=== PATIENT | female | born 1985 | race Caucasian/White ===

== ENCOUNTER 2017-01-31 13:00 | Emergency (ER) | payer OTHER ==
[~2017-01-31] VITALS: Ht 167.6 cm; Wt 59.5 kg
[~2017-01-31 13:00] MED LIST: APAP/HYDROCODON1 T13 PO; ASPI-COR81 M3 PO; ASPIR 8181 MG PO; AUG500 PO; CIPRO250 MG PO; COLACE100 MG PO; DILAUDID2 MG PO; DOXYCYCLINE100 MG PO; ERYTHROMYCIN250 M2 PO; FER300 PO; FLUCONAZOLE100 MG PO; GLIPIZIDE5 MG PO; GLU10 PO; GLU500 PO; GLU850 PO; LAC PO; LACTULOSE10 GM/152 PO; LASIX20 MG PO; LAXATIVE5 M1 PO; LEVEMIR100 U/M1 SC; METFORMIN HCL500 MG PO; METOCLOPRAMIDE10 MG PO; NATURAL IRON65 MG PO; NICODERM C21 MG/241 TOP; NOR10T PO; NORCO1 TA2 PO; NOVOLOG100 U/ML SC; PROTONIX20 MG PO; PROTONIX40 MG PO; PULMICORT0.5 MG/2 M IH; REG10 PO; SIMVASTATIN10 M1 PO; SIMVASTATIN40 M1 PO; VITC PO; ZOF4 PO
[2017-01-31 14:03] LABS: BASOPHIL % 1.1 % (0-2); PLATELET COUNT 229 x10^3mcL (130-400)
[2017-01-31 14:06] LABS: RED CELL DISTRIBUTION WIDTH 16.7 % (11.5-14.5)
[2017-01-31 14:09] LABS: CALCIUM 8.9 mg/dL (8.5-10.1); CARBON DIOXIDE 35.2 mmol/L (21-32); CHLORIDE SERUM 103 mmol/L (98-107); CREATININE SERUM 1.1 mg/dL (0.6-1.0); GFR1 > 60 mL/min; GLUCOSE SERUM 246 mg/dL (74-106); POTASSIUM SERUM 3.9 mmol/L (3.5-5.1); SODIUM SERUM 141 mmol/L (136-145)
[2017-01-31 14:13] LABS: ALBUMIN 2.2 g/dL (3.4-5.0); ALKALINE PHOSPHATASE 129 U/L (46-116); ALT/SGPT 23 U/L (14-59); AMYLASE 34 U/L (25-115); AST/SGOT 21 U/L (15-37); BILIRUBIN TOTAL 0.4 mg/dL (0.20-1.00); LIPASE 61 IU/L (73-393); TOTAL PROTEIN, SERUM 6.1 g/dL (6.4-8.2)
[2017-01-31 16:44] VITALS: BP 138/99
== END 2017-01-31 16:44 | disposition home or self-care (01) ==
LOC: ED 13:00
PROVIDERS: Emergency Medicine
DX: K31.84 Gastroparesis (principal); I10 Essential (primary) hypertension; E11.621 Type 2 diabetes mellitus with foot ulcer; Z88.2 Allergy status to sulfonamides; Z79.899 Other long term (current) drug therapy
CPT/HCPCS: 83880; J1630; J1885; J2543; J3490; J7030

== ENCOUNTER 2017-09-28 10:46 | Emergency (ER) | payer OTHER ==
[2017-09-28 11:59] LABS: CALCIUM 8.9 mg/dL (8.5-10.1); CARBON DIOXIDE 26.2 mmol/L (21-32); CREATININE SERUM 2.3 mg/dL (0.6-1.0)
[2017-09-28 12:03] LABS: BILIRUBIN TOTAL 0.52 mg/dL (0.20-1.00); TOTAL PROTEIN, SERUM 7.5 g/dL (6.4-8.2)
[2017-09-28] MEDS ORDERED: LASIX40 MG PO (12:05)
[2017-09-28] MEDS ORDERED: ZESTRIL20 MG PO (12:07)
[2017-09-28 12:25] LABS: BASOPHIL % 0.6 % (0-2); PLATELET COUNT 331 x10^3mcL (130-400)
[2017-09-28 12:26] LABS: UA SPECIFIC GRAVITY 1.025 (1.005-1.035); microscopic required? YES; urine erythrocyte 3+ (NEGATIVE)
[2017-09-28 12:31] LABS: AMPHETAMINE QUAL UR POSITIVE (NEG <=1000)
[2017-09-28 12:33] LABS: RED CELL DISTRIBUTION WIDTH 14.8 % (11.5-14.5)
[2017-09-28 15:17] VITALS: BP 163/104
== END 2017-09-28 15:17 | disposition home or self-care (01) ==
LOC: ED 10:46
PROVIDERS: Emergency Medicine
DX: K31.84 Gastroparesis (principal); R10.13 Epigastric pain; R82.71 Bacteriuria; R11.10 Vomiting, unspecified; E11.22 Type 2 diabetes mellitus with diabetic chronic kidney disease; I12.9 Hypertensive chronic kidney disease with stage 1 through stage 4 chronic kidney disease, or unspecified chronic kidney disease; N18.4 Chronic kidney disease, stage 4 (severe); E78.00 Pure hypercholesterolemia, unspecified; Z88.1 Allergy status to other antibiotic agents; Z90.49 Acquired absence of other specified parts of digestive tract
CPT/HCPCS: 82962; 83880; J0696; J1630; J2060; J7030

== ENCOUNTER 2017-11-09 04:15 | Inpatient (IN) | payer OTHER ==
[~2017-11-09] VITALS: Ht 167.6 cm; Wt 99.0 kg
[~2017-11-09 04:15] MED LIST changes: +GLIPIZIDE2.5 M1; +LASIX40 MG PO; +ZESTRIL20 MG PO
[2017-11-09 04:28] VITALS: Ht 167.6 cm; Wt 99.0 kg
[2017-11-09 08:53] LABS: BASOPHIL % 0.1 % (0-2); PLATELET COUNT 250 x10^3mcL (130-400)
[2017-11-09 08:54] LABS: RED CELL DISTRIBUTION WIDTH 15.5 % (11.5-14.5)
[2017-11-09 09:15] LABS: BILIRUBIN TOTAL 0.3 mg/dL (0.20-1.00); CALCIUM 7.9 mg/dL (8.5-10.1); CARBON DIOXIDE 20.9 mmol/L (21-32); CREATININE SERUM 2.6 mg/dL (0.6-1.0); TOTAL PROTEIN, SERUM 6.7 g/dL (6.4-8.2)
[2017-11-09 09:20] LABS: ALBUMIN 1.2 g/dL (3.4-5.0)
[2017-11-09 09:23] LABS: POTASSIUM SERUM 5.9 mmol/L (3.5-5.1)
[2017-11-09] MEDS ORDERED: PROTONIX20 MG PO (09:36)
[2017-11-09] MEDS ORDERED: SIMVASTATIN5 M2 PO (09:38)
[2017-11-09] MEDS ORDERED: GABAPENTIN100 M2 PO (09:39)
[2017-11-09 12:16] VITALS: BP 127/88
[2017-11-09 16:24] LABS: MAGNESIUM 1.6 mg/dL (1.8-2.4); PHOSPHOROUS 3.7 mg/dL (2.5-4.9)
[2017-11-09 16:25] LABS: T3 TOTAL 0.29 ng/mL
[2017-11-09 16:26] LABS: CHOLESTEROL/HDL RATIO 1.7
[2017-11-09 16:27] LABS: FREE T4 0.51 ng/dL (0.76-1.46)
[2017-11-09 16:29] LABS: FREE THYROXINE INDEX 0.8 ug/dL (1.4-4.5); T4(THYROXINE) 2.1 ug/dL (4.7-13.3)
[2017-11-09 18:00] VITALS: BP 159/96
[2017-11-09 19:22] LABS: microscopic required? YES; urine erythrocyte 2+ (NEGATIVE)
[2017-11-09 19:30] LABS: AMPHETAMINE QUAL UR NONE DETECTED (NEG <=1000)
[2017-11-09 21:15] VITALS: BP 151/86
[2017-11-09 21:50] LABS: CARBON DIOXIDE 25.2 mmol/L (21-32); CREATININE SERUM 2.6 mg/dL (0.6-1.0)
[2017-11-09 21:53] LABS: POTASSIUM SERUM 6.2 mmol/L (3.5-5.1)
[2017-11-10 04:39] VITALS: BP 134/64
[2017-11-10 04:44] VITALS: BP 151/80
[2017-11-10 06:36] LABS: BASOPHIL % 0.4 % (0-2); PLATELET COUNT 274 x10^3mcL (130-400)
[2017-11-10 06:46] LABS: RED CELL DISTRIBUTION WIDTH 15.3 % (11.5-14.5)
[2017-11-10 08:06] LABS: CALCIUM 8.2 mg/dL (8.5-10.1); CARBON DIOXIDE 26.1 mmol/L (21-32); CREATININE SERUM 2.5 mg/dL (0.6-1.0); MAGNESIUM 1.4 mg/dL (1.8-2.4); PHOSPHOROUS 5.2 mg/dL (2.5-4.9)
[2017-11-10 08:30] LABS: POTASSIUM SERUM 6.2 mmol/L (3.5-5.1)
[2017-11-10 09:54] VITALS: BP 196/122
[2017-11-10 13:15] VITALS: BP 176/93
[2017-11-10 16:42] LABS: CALCIUM 8.1 mg/dL (8.5-10.1); CARBON DIOXIDE 27.1 mmol/L (21-32); CREATININE SERUM 2.5 mg/dL (0.6-1.0)
[2017-11-10 17:20] VITALS: BP 176/97
[2017-11-10 22:21] VITALS: BP 137/81
[2017-11-11 06:22] VITALS: BP 148/86
[2017-11-11 06:37] LABS: CALCIUM 7.9 mg/dL (8.5-10.1); CARBON DIOXIDE 27.1 mmol/L (21-32); CREATININE SERUM 2.4 mg/dL (0.6-1.0); MAGNESIUM 1.4 mg/dL (1.8-2.4); PHOSPHOROUS 5.8 mg/dL (2.5-4.9); POTASSIUM SERUM 4.3 mmol/L (3.5-5.1)
[2017-11-11 07:42] LABS: PLATELET COUNT 302 x10^3mcL (130-400); RED CELL DISTRIBUTION WIDTH 14.1 % (11.5-14.5)
[2017-11-11 12:13] VITALS: BP 156/98
[2017-11-11 17:49] VITALS: BP 125/79
[2017-11-11 21:10] VITALS: BP 141/83
[2017-11-12 05:22] VITALS: BP 124/71
[2017-11-12 06:59] LABS: BASOPHIL % 0.7 % (0-2); PLATELET COUNT 326 x10^3mcL (130-400); RED CELL DISTRIBUTION WIDTH 14.3 % (11.5-14.5)
[2017-11-12 07:17] LABS: CALCIUM 7.1 mg/dL (8.5-10.1); CARBON DIOXIDE 27.6 mmol/L (21-32); CREATININE SERUM 2.7 mg/dL (0.6-1.0); MAGNESIUM 1.8 mg/dL (1.8-2.4); PHOSPHOROUS 5.7 mg/dL (2.5-4.9); POTASSIUM SERUM 4.7 mmol/L (3.5-5.1)
[2017-11-12 09:33] VITALS: BP 129/78; BP 133/79
[2017-11-12 13:00] VITALS: BP 152/83
[2017-11-12 17:06] VITALS: BP 129/79
[2017-11-12 22:37] VITALS: BP 131/66
[2017-11-13 06:10] LABS: BASOPHIL % 0.6 % (0-2); PLATELET COUNT 331 x10^3mcL (130-400)
[2017-11-13 06:16] LABS: RED CELL DISTRIBUTION WIDTH 15.5 % (11.5-14.5)
[2017-11-13 06:29] LABS: CALCIUM 7.2 mg/dL (8.5-10.1); CARBON DIOXIDE 26.8 mmol/L (21-32); CREATININE SERUM 2.9 mg/dL (0.6-1.0); MAGNESIUM 1.6 mg/dL (1.8-2.4); PHOSPHOROUS 5.7 mg/dL (2.5-4.9); POTASSIUM SERUM 5.2 mmol/L (3.5-5.1)
[2017-11-13 07:16] VITALS: BP 128/73
[2017-11-13 11:02] VITALS: BP 132/81
[2017-11-13 12:04] LABS: CARBON DIOXIDE 27.9 mmol/L (21-32); POTASSIUM SERUM 5.5 mmol/L (3.5-5.1)
[2017-11-13 14:17] VITALS: BP 135/77
[2017-11-13 15:53] LABS: CALCIUM 7.4 mg/dL (8.5-10.1); CARBON DIOXIDE 25.7 mmol/L (21-32); CREATININE SERUM 2.9 mg/dL (0.6-1.0); POTASSIUM SERUM 4.9 mmol/L (3.5-5.1)
[2017-11-13] MEDS ORDERED: CLEOCIN HCL300 MG PO (17:33)
[2017-11-13] MEDS ORDERED: LASIX80 MG PO (17:34)
[2017-11-13] MEDS ORDERED: XARELTO15 M1 PO (17:36)
[2017-11-13] MEDS ORDERED: LIPI10 PO (17:36)
[2017-11-13] MEDS ORDERED: NOR10 PO (17:38)
[2017-11-13] MEDS ORDERED: APR25 PO (17:38)
[2017-11-13] MEDS ORDERED: PER5 PO (17:38)
[2017-11-13] MEDS ORDERED: PHOS PO (17:39)
[2017-11-13] MEDS ORDERED: COL100 PO (17:40)
[2017-11-13] MEDS ORDERED: Z5 PO (17:40)
[2017-11-13] MEDS ORDERED: LAC PO (17:41)
[2017-11-13 18:13] VITALS: BP 129/66
[2017-11-13 18:15] VITALS: BP 129/66
== END 2017-11-13 19:05 | disposition home or self-care (01) | DRG 710 ==
LOC: ED 04:15 → DU 09:43
PROVIDERS: Emergency Medicine; Family Medicine; Internal Medicine Nephrology; Podiatrist
PROC: 0L8N0ZZ Division of Right Lower Leg Tendon, Open Approach (ICD-10-PCS; 2017-11-11)
PROC: 0Y6M0Z9 Detachment at Right Foot, Partial 1st Ray, Open Approach (ICD-10-PCS; principal; 2017-11-11 07:30)
DX: A41.9 Sepsis, unspecified organism (principal); N17.0 Acute kidney failure with tubular necrosis; I50.43 Acute on chronic combined systolic (congestive) and diastolic (congestive) heart failure; E43 Unspecified severe protein-calorie malnutrition; I82.403 Acute embolism and thrombosis of unspecified deep veins of lower extremity, bilateral; L03.115 Cellulitis of right lower limb; N18.4 Chronic kidney disease, stage 4 (severe); I13.0 Hypertensive heart and chronic kidney disease with heart failure and stage 1 through stage 4 chronic kidney disease, or unspecified chronic kidney disease; E11.21 Type 2 diabetes mellitus with diabetic nephropathy; E11.22 Type 2 diabetes mellitus with diabetic chronic kidney disease; E11.42 Type 2 diabetes mellitus with diabetic polyneuropathy; E11.621 Type 2 diabetes mellitus with foot ulcer; M86.8X7 Other osteomyelitis, ankle and foot; E83.42 Hypomagnesemia; E11.628 Type 2 diabetes mellitus with other skin complications; E11.65 Type 2 diabetes mellitus with hyperglycemia; E87.5 Hyperkalemia; F17.210 Nicotine dependence, cigarettes, uncomplicated; E11.43 Type 2 diabetes mellitus with diabetic autonomic (poly)neuropathy; K31.84 Gastroparesis; D64.9 Anemia, unspecified; E02 Subclinical iodine-deficiency hypothyroidism; E87.1 Hypo-osmolality and hyponatremia; E83.39 Other disorders of phosphorus metabolism; I16.0 Hypertensive urgency; B37.3 Candidiasis of vulva and vagina; R31.9 Hematuria, unspecified; E83.51 Hypocalcemia; E11.51 Type 2 diabetes mellitus with diabetic peripheral angiopathy without gangrene; Z68.29 Body mass index [BMI] 29.0-29.9, adult; Z89.512 Acquired absence of left leg below knee; L97.519 Non-pressure chronic ulcer of other part of right foot with unspecified severity; Z88.2 Allergy status to sulfonamides; Z88.0 Allergy status to penicillin; L03.031 Cellulitis of right toe; Z83.3 Family history of diabetes mellitus; Z82.49 Family history of ischemic heart disease and other diseases of the circulatory system; Z98.891 History of uterine scar from previous surgery; J98.11 Atelectasis
CPT/HCPCS: 82962; 83880; 84439; 94150; J0360; J0610; J1642; J1644; J1885; J1940; J1956; J2250; J2270; J2405; J2543; J2550; J2765; J3010; J3475; J3490; J7030; J8597; Q0092

== ENCOUNTER 2018-01-14 06:02 | Day surgery (SDC) | payer OTHER ==
[2018-01-13 16:55] LABS: BASOPHIL % 0.8 % (0-2); PLATELET COUNT 323 x10^3mcL (130-400); RED CELL DISTRIBUTION WIDTH 17.3 % (11.5-14.5)
[2018-01-13 17:22] LABS: CALCIUM 8.5 mg/dL (8.5-10.1); CREATININE SERUM 2.1 mg/dL (0.6-1.0)
[~2018-01-14] VITALS: Ht 167.6 cm; Wt 72.6 kg
[~2018-01-14 06:02] MED LIST changes: +APR25 PO; +CLEOCIN HCL300 MG PO; +COL100 PO; +GABAPENTIN100 M2 PO; +LASIX80 MG PO; +LIPI10 PO; +NOR10 PO; +PER5 PO; +PHOS PO; +SIMVASTATIN5 M2 PO; +XARELTO15 M1 PO; +Z5 PO
[2018-01-14 06:31] VITALS: BP 170/111
[2018-01-14 12:44] VITALS: BP 151/99
== END 2018-01-14 11:25 | disposition home or self-care (01) ==
LOC: DS 06:02 → OR 10:00 → DS 10:00
PROVIDERS: Podiatrist
PROC: 0Y6M0ZB Detachment at Right Foot, Partial 2nd Ray, Open Approach (ICD-10-PCS; principal; 2018-01-14 07:30)
DX: T87.81 Dehiscence of amputation stump (principal); E11.42 Type 2 diabetes mellitus with diabetic polyneuropathy; E11.43 Type 2 diabetes mellitus with diabetic autonomic (poly)neuropathy; E11.65 Type 2 diabetes mellitus with hyperglycemia; K31.84 Gastroparesis; I13.0 Hypertensive heart and chronic kidney disease with heart failure and stage 1 through stage 4 chronic kidney disease, or unspecified chronic kidney disease; E11.22 Type 2 diabetes mellitus with diabetic chronic kidney disease; N18.9 Chronic kidney disease, unspecified; I50.9 Heart failure, unspecified; Z89.431 Acquired absence of right foot; Z89.512 Acquired absence of left leg below knee; Y83.5 Amputation of limb(s) as the cause of abnormal reaction of the patient, or of later complication, without mention of misadventure at the time of the procedure; Y92.009 Unspecified place in unspecified non-institutional (private) residence as the place of occurrence of the external cause
CPT/HCPCS: 82962; J0690; J1815; J2001; J3010; J3490; Q0092

== ENCOUNTER 2018-01-29 16:49 | Emergency (ER) | payer OTHER ==
[~2018-01-29] VITALS: Ht 167.6 cm; Wt 68.0 kg
[2018-01-29 16:57] VITALS: Ht 167.6 cm; Wt 68.0 kg
[2018-01-29 18:24] LABS: BASOPHIL % 0.5 % (0-2); PLATELET COUNT 350 x10^3mcL (130-400)
[2018-01-29 18:25] LABS: RED CELL DISTRIBUTION WIDTH 16.5 % (11.5-14.5)
[2018-01-29 18:35] LABS: CALCIUM 7.6 mg/dL (8.5-10.1); CARBON DIOXIDE 25.1 mmol/L (21-32); CREATININE SERUM 1.9 mg/dL (0.6-1.0); POTASSIUM SERUM 4.6 mmol/L (3.5-5.1)
[2018-01-29 18:37] LABS: ALBUMIN 1.4 g/dL (3.4-5.0); BILIRUBIN TOTAL 0.2 mg/dL (0.20-1.00); CHOLESTEROL/HDL RATIO 3.7; TOTAL PROTEIN, SERUM 6.7 g/dL (6.4-8.2)
[2018-01-29 18:50] LABS: T3 TOTAL 0.75 ng/mL
[2018-01-29 19:15] LABS: FREE T4 1.07 ng/dL (0.76-1.46); FREE THYROXINE INDEX 2.7 ug/dL (1.4-4.5); T4(THYROXINE) 7.4 ug/dL (4.7-13.3)
[2018-01-29 19:36] VITALS: BP 147/108
== END 2018-01-29 19:36 | disposition home or self-care (01) ==
LOC: ED 16:49
PROVIDERS: Specialist
DX: R10.13 Epigastric pain (principal); J20.9 Acute bronchitis, unspecified; R11.2 Nausea with vomiting, unspecified; I10 Essential (primary) hypertension; E11.9 Type 2 diabetes mellitus without complications; E78.00 Pure hypercholesterolemia, unspecified; Z88.1 Allergy status to other antibiotic agents; Z88.2 Allergy status to sulfonamides; Z90.49 Acquired absence of other specified parts of digestive tract
CPT/HCPCS: 36415; 82962; 83880; 84439; J1885; J3010; Q0092; Q0162

== ENCOUNTER 2018-03-02 18:04 | Inpatient (IN) | payer OTHER ==
[~2018-03-02] VITALS: Ht 167.6 cm; Wt 88.1 kg
[2018-03-02 18:29] VITALS: Ht 167.6 cm; Wt 88.1 kg
[2018-03-02 19:44] LABS: BASOPHIL % 0.1 % (0-2); PLATELET COUNT 241 x10^3mcL (130-400)
[2018-03-02 19:45] LABS: RED CELL DISTRIBUTION WIDTH 18.6 % (11.5-14.5)
[2018-03-02 19:48] LABS: CALCIUM 7.6 mg/dL (8.5-10.1); CARBON DIOXIDE 20.9 mmol/L (21-32); CREATININE SERUM 2.7 mg/dL (0.6-1.0); POTASSIUM SERUM 4.4 mmol/L (3.5-5.1)
[2018-03-02 19:53] LABS: BILIRUBIN TOTAL 0.4 mg/dL (0.20-1.00)
[2018-03-02 20:08] LABS: ALBUMIN 1.5 g/dL (3.4-5.0); TOTAL PROTEIN, SERUM 5.8 g/dL (6.4-8.2)
[2018-03-02 20:35] LABS: ERYTHROCYTE SED RATE 71 mm/hr (0-20)
[2018-03-02 22:31] LABS: MAGNESIUM 1.6 mg/dL (1.8-2.4); PHOSPHOROUS 3.6 mg/dL (2.5-4.9)
[2018-03-02 22:35] LABS: CHOLESTEROL/HDL RATIO 1.8
[2018-03-02 22:39] LABS: T3 TOTAL 0.74 ng/mL
[2018-03-02 23:24] LABS: FREE T4 0.87 ng/dL (0.76-1.46); FREE THYROXINE INDEX 2.1 ug/dL (1.4-4.5); T4(THYROXINE) 5.6 ug/dL (4.7-13.3)
[2018-03-02] MEDS ORDERED: XARELTO10 M1 PO (23:26)
[2018-03-02 23:37] VITALS: BP 164/97
[2018-03-03 01:05] VITALS: BP 143/92
[2018-03-03 06:15] VITALS: BP 139/91
[2018-03-03 06:56] LABS: CALCIUM 7.5 mg/dL (8.5-10.1); CARBON DIOXIDE 18.6 mmol/L (21-32); CREATININE SERUM 2.6 mg/dL (0.6-1.0); MAGNESIUM 2.6 mg/dL (1.8-2.4); PHOSPHOROUS 3.9 mg/dL (2.5-4.9); POTASSIUM SERUM 4.2 mmol/L (3.5-5.1)
[2018-03-03 08:05] LABS: BASOPHIL % 0.5 % (0-2); PLATELET COUNT 214 x10^3mcL (130-400); RED CELL DISTRIBUTION WIDTH 18.8 % (11.5-14.5)
[2018-03-03 09:30] VITALS: BP 138/92
[2018-03-03 12:21] VITALS: BP 132/87
[2018-03-03 17:00] VITALS: BP 116/75
[2018-03-03 21:18] VITALS: BP 119/80
[2018-03-04 03:02] VITALS: BP 119/80
[2018-03-04 05:53] VITALS: BP 127/88
[2018-03-04 06:01] LABS: BASOPHIL % 0.5 % (0-2); PLATELET COUNT 225 x10^3mcL (130-400)
[2018-03-04 06:17] LABS: CALCIUM 7.5 mg/dL (8.5-10.1); CARBON DIOXIDE 16.9 mmol/L (21-32); CREATININE SERUM 2.8 mg/dL (0.6-1.0); POTASSIUM SERUM 4.8 mmol/L (3.5-5.1)
[2018-03-04 06:29] LABS: RED CELL DISTRIBUTION WIDTH 18.8 % (11.5-14.5)
[2018-03-04] MEDS ORDERED: CLEOCIN HCL300 MG PO (08:41)
[2018-03-04] MEDS ORDERED: BD LACTINEX1.4 MG PO (08:41)
[2018-03-04 08:57] LABS: AMPHETAMINE QUAL UR POSITIVE (NEG <=1000)
[2018-03-04] MEDS ORDERED: IBUPROFEN400 MG PO (09:06)
[2018-03-04 09:37] VITALS: BP 130/68
[2018-03-04 13:15] VITALS: BP 130/68
[2018-03-05 14:31] LABS: microalbumin:creatinine ratio 6821.8 (0.0-30.0)
== END 2018-03-04 15:27 | disposition home or self-care (01) | DRG 420 ==
LOC: ED 18:04 → DU 21:49 → MU 03-03 15:18
PROVIDERS: Emergency Medicine; Family Medicine; Internal Medicine
DX: E10.622 Type 1 diabetes mellitus with other skin ulcer (principal); N17.0 Acute kidney failure with tubular necrosis; I50.43 Acute on chronic combined systolic (congestive) and diastolic (congestive) heart failure; E43 Unspecified severe protein-calorie malnutrition; K31.84 Gastroparesis; E83.42 Hypomagnesemia; E10.43 Type 1 diabetes mellitus with diabetic autonomic (poly)neuropathy; E83.51 Hypocalcemia; I13.0 Hypertensive heart and chronic kidney disease with heart failure and stage 1 through stage 4 chronic kidney disease, or unspecified chronic kidney disease; E10.22 Type 1 diabetes mellitus with diabetic chronic kidney disease; E78.00 Pure hypercholesterolemia, unspecified; K29.70 Gastritis, unspecified, without bleeding; D63.8 Anemia in other chronic diseases classified elsewhere; E10.65 Type 1 diabetes mellitus with hyperglycemia; N18.4 Chronic kidney disease, stage 4 (severe); E10.51 Type 1 diabetes mellitus with diabetic peripheral angiopathy without gangrene; E78.5 Hyperlipidemia, unspecified; Z88.3 Allergy status to other anti-infective agents; Z68.25 Body mass index [BMI] 25.0-25.9, adult; Z89.512 Acquired absence of left leg below knee; Z90.49 Acquired absence of other specified parts of digestive tract; Z82.49 Family history of ischemic heart disease and other diseases of the circulatory system; Z83.3 Family history of diabetes mellitus; Z56.0 Unemployment, unspecified
CPT/HCPCS: 82962; 83880; 84439; J1644; J1940; J2270; J2543; J3475; J3490; J7030; J7620; J8597; Q0092

== ENCOUNTER 2018-11-22 23:28 | Inpatient (IN) | payer OTHER ==
[~2018-11-22] VITALS: Ht 167.6 cm; Wt 69.9 kg
[~2018-11-22 23:28] MED LIST changes: -ASPI-COR81 M3 PO; +ASPIRIN ADULT L81 M5 PO; +BD LACTINEX1.4 MG PO; +IBUPROFEN400 MG PO; +XARELTO10 M1 PO
[2018-11-22 23:32] VITALS: Ht 167.6 cm; Wt 69.9 kg
[2018-11-23 00:54] LABS: BASOPHIL % 0.5 % (0-2); PLATELET COUNT 329 x10^3mcL (130-400)
[2018-11-23 01:05] LABS: BILIRUBIN TOTAL 0.3 mg/dL (0.20-1.00); CALCIUM 9.2 mg/dL (8.5-10.1); CARBON DIOXIDE 32.7 mmol/L (21-32); MAGNESIUM 1.9 mg/dL (1.8-2.4); PHOSPHOROUS 4.6 mg/dL (2.5-4.9); POTASSIUM SERUM 4.2 mmol/L (3.5-5.1); TOTAL PROTEIN, SERUM 8.2 g/dL (6.4-8.2)
[2018-11-23 01:07] LABS: RED CELL DISTRIBUTION WIDTH 17.6 % (11.5-14.5)
[2018-11-23 01:11] LABS: ALBUMIN 2.8 g/dL (3.4-5.0)
[2018-11-23 01:14] LABS: CREATININE SERUM 5.6 mg/dL (0.6-1.0)
[2018-11-23] MEDS ORDERED: LISINOPRIL40 MG PO (02:37)
[2018-11-23] MEDS ORDERED: SIMVASTATIN40 M1 PO (02:38)
[2018-11-23] MEDS ORDERED: REGLAN10 M1 PO (02:42)
[2018-11-23] MEDS ORDERED: GLIPIZIDE5 M2 PO (02:43)
[2018-11-23 03:49] VITALS: BP 184/117
[2018-11-23 03:51] LABS: CHOLESTEROL/HDL RATIO 1.9
[2018-11-23 04:51] VITALS: BP 184/117
[2018-11-23 05:08] VITALS: BP 143/92
[2018-11-23 06:49] LABS: BASOPHIL % 0.5 % (0-2); PLATELET COUNT 211 x10^3mcL (130-400)
[2018-11-23 06:59] LABS: RED CELL DISTRIBUTION WIDTH 18.7 % (11.5-14.5)
[2018-11-23 07:08] LABS: CALCIUM 8.8 mg/dL (8.5-10.1); CARBON DIOXIDE 32.1 mmol/L (21-32); POTASSIUM SERUM 4.1 mmol/L (3.5-5.1)
[2018-11-23 07:10] LABS: CREATININE SERUM 5.5 mg/dL (0.6-1.0)
[2018-11-23 09:33] VITALS: BP 152/97
[2018-11-23 17:00] VITALS: BP 134/82
[2018-11-23 22:09] VITALS: BP 143/84
[2018-11-24 06:31] VITALS: BP 136/85
[2018-11-24 07:53] LABS: BASOPHIL % 1.1 % (0-2); PLATELET COUNT 234 x10^3mcL (130-400)
[2018-11-24 08:06] LABS: CALCIUM 8.3 mg/dL (8.5-10.1); CARBON DIOXIDE 33.3 mmol/L (21-32); CREATININE SERUM 4.4 mg/dL (0.6-1.0); MAGNESIUM 1.9 mg/dL (1.8-2.4); PHOSPHOROUS 5.2 mg/dL (2.5-4.9); POTASSIUM SERUM 3.8 mmol/L (3.5-5.1)
[2018-11-24 13:12] VITALS: BP 154/102
[2018-11-24 16:48] VITALS: BP 123/83
[2018-11-24 20:57] VITALS: BP 117/69
[2018-11-25 05:36] VITALS: BP 133/80
[2018-11-25 07:08] LABS: BASOPHIL % 0.4 % (0-2); PLATELET COUNT 226 x10^3mcL (130-400)
[2018-11-25 07:16] LABS: CALCIUM 7.8 mg/dL (8.5-10.1); CARBON DIOXIDE 29.6 mmol/L (21-32); MAGNESIUM 1.9 mg/dL (1.8-2.4); PHOSPHOROUS 6.1 mg/dL (2.5-4.9); POTASSIUM SERUM 4.5 mmol/L (3.5-5.1)
[2018-11-25 07:17] LABS: CREATININE SERUM 5.3 mg/dL (0.6-1.0)
[2018-11-25 07:18] LABS: RED CELL DISTRIBUTION WIDTH 19.4 % (11.5-14.5)
[2018-11-25 07:39] VITALS: BP 142/91
[2018-11-25 11:20] VITALS: BP 150/84
[2018-11-25] MEDS ORDERED: ANC1I IV (16:49)
[2018-11-25 16:57] VITALS: BP 150/84
[2018-11-25 17:37] VITALS: BP 128/78
== END 2018-11-25 18:46 | disposition home or self-care (01) | DRG 720 ==
LOC: ED 23:28 → DU 11-23 01:36
PROVIDERS: Emergency Medicine; Internal Medicine; ADMIT General Practice
DX: A41.9 Sepsis, unspecified organism (principal); N17.0 Acute kidney failure with tubular necrosis; J96.21 Acute and chronic respiratory failure with hypoxia; E43 Unspecified severe protein-calorie malnutrition; G93.41 Metabolic encephalopathy; D68.69 Other thrombophilia; I13.2 Hypertensive heart and chronic kidney disease with heart failure and with stage 5 chronic kidney disease, or end stage renal disease; E11.22 Type 2 diabetes mellitus with diabetic chronic kidney disease; I25.10 Atherosclerotic heart disease of native coronary artery without angina pectoris; E11.65 Type 2 diabetes mellitus with hyperglycemia; N18.6 End stage renal disease; I50.43 Acute on chronic combined systolic (congestive) and diastolic (congestive) heart failure; E87.1 Hypo-osmolality and hyponatremia; Z99.2 Dependence on renal dialysis; Z89.431 Acquired absence of right foot; Z68.25 Body mass index [BMI] 25.0-25.9, adult; Z89.512 Acquired absence of left leg below knee; Z95.1 Presence of aortocoronary bypass graft; Z79.84 Long term (current) use of oral hypoglycemic drugs; Z86.718 Personal history of other venous thrombosis and embolism; Z88.2 Allergy status to sulfonamides; Z88.8 Allergy status to other drugs, medicaments and biological substances; Z87.11 Personal history of peptic ulcer disease; Z83.3 Family history of diabetes mellitus; Z82.49 Family history of ischemic heart disease and other diseases of the circulatory system; T87.81 Dehiscence of amputation stump; Y83.8 Other surgical procedures as the cause of abnormal reaction of the patient, or of later complication, without mention of misadventure at the time of the procedure
CPT/HCPCS: 82962; 83880; 84439; 87804; 94150; 97112-GP; 97116-GP; 97530-GP; C9113; J0885-EC; J1644; J1940; J2270; J2405; J2543; J3370; J3490; J7030; J7050; J7620; J8597; Q0092

== ENCOUNTER 2019-01-02 19:41 | Inpatient (IN) | payer OTHER ==
[~2019-01-02] VITALS: Ht 167.6 cm; Wt 69.0 kg
[~2019-01-02 19:41] MED LIST changes: +ANC1I IV; +GLIPIZIDE5 M2 PO; +LISINOPRIL40 MG PO; +REGLAN10 M1 PO
[2019-01-02 19:47] VITALS: Ht 167.6 cm; Wt 69.0 kg
[2019-01-02 20:24] LABS: PLATELET COUNT 423 x10^3mcL (130-400); RED CELL DISTRIBUTION WIDTH 19.3 % (11.5-14.5)
[2019-01-02 20:39] LABS: BAND NEUTROPHIL 0 % (0-10); MONOCYTE 2 % (0-7); SEGMENTED NEUTROPHILS 82 % (37-75)
[2019-01-02 20:40] LABS: BASOPHIL 0 % (0-2); rbc morphology (normal/abnorm) ABNORMAL (NORMAL)
[2019-01-02 20:58] LABS: BILIRUBIN TOTAL 0.8 mg/dL (0.20-1.00); CALCIUM 9.2 mg/dL (8.5-10.1); CARBON DIOXIDE 24.4 mmol/L (21-32); POTASSIUM SERUM 5.3 mmol/L (3.5-5.1); TOTAL PROTEIN, SERUM 7.7 g/dL (6.4-8.2)
[2019-01-02 21:00] LABS: CREATININE SERUM 5.5 mg/dL (0.6-1.0)
[2019-01-02] MEDS ORDERED: NATURAL IRON65 MG (22:32)
[2019-01-02] MEDS ORDERED: COREG6.25 M1 (22:32)
[2019-01-02 23:22] VITALS: BP 155/106
[2019-01-02 23:31] LABS: MAGNESIUM 2.1 mg/dL (1.8-2.4); PHOSPHOROUS 7.5 mg/dL (2.5-4.9)
[2019-01-03 02:52] VITALS: BP 133/87
[2019-01-03 05:39] VITALS: BP 138/88
[2019-01-03 07:10] LABS: BASOPHIL % 0.8 % (0-2); PLATELET COUNT 305 x10^3mcL (130-400); RED CELL DISTRIBUTION WIDTH 19.2 % (11.5-14.5)
[2019-01-03 07:39] LABS: CALCIUM 8.5 mg/dL (8.5-10.1); CARBON DIOXIDE 21.3 mmol/L (21-32); MAGNESIUM 2.1 mg/dL (1.8-2.4); PHOSPHOROUS 7.2 mg/dL (2.5-4.9); POTASSIUM SERUM 5.4 mmol/L (3.5-5.1)
[2019-01-03 07:46] LABS: CREATININE SERUM 5.6 mg/dL (0.6-1.0)
[2019-01-03 09:25] VITALS: BP 130/83
[2019-01-03 14:27] VITALS: BP 133/82
[2019-01-03 18:17] VITALS: BP 147/87
[2019-01-03 21:30] VITALS: BP 125/79
[2019-01-04 05:31] VITALS: BP 138/88
[2019-01-04 06:43] LABS: BASOPHIL % 0.6 % (0-2); PLATELET COUNT 366 x10^3mcL (130-400)
[2019-01-04 08:10] LABS: CALCIUM 8.1 mg/dL (8.5-10.1); CARBON DIOXIDE 25.2 mmol/L (21-32); MAGNESIUM 1.8 mg/dL (1.8-2.4); PHOSPHOROUS 6.9 mg/dL (2.5-4.9); POTASSIUM SERUM 4.7 mmol/L (3.5-5.1)
[2019-01-04 08:18] LABS: CREATININE SERUM 4.4 mg/dL (0.6-1.0)
[2019-01-04 09:42] VITALS: BP 105/61
[2019-01-04 11:30] VITALS: BP 113/74
[2019-01-04 18:19] VITALS: BP 140/89
[2019-01-04 20:50] VITALS: BP 136/81
[2019-01-05 06:18] VITALS: BP 113/70
[2019-01-05 07:03] LABS: BASOPHIL % 0.4 % (0-2); PLATELET COUNT 307 x10^3mcL (130-400)
[2019-01-05 07:11] LABS: RED CELL DISTRIBUTION WIDTH 19.1 % (11.5-14.5)
[2019-01-05 07:16] LABS: CALCIUM 7.8 mg/dL (8.5-10.1); CARBON DIOXIDE 24.2 mmol/L (21-32); CREATININE SERUM 3.4 mg/dL (0.6-1.0); MAGNESIUM 1.7 mg/dL (1.8-2.4); PHOSPHOROUS 5.7 mg/dL (2.5-4.9)
[2019-01-05 09:35] VITALS: BP 104/68
[2019-01-05 13:25] VITALS: BP 103/61
[2019-01-05 16:58] VITALS: BP 130/69
[2019-01-05 20:52] VITALS: BP 113/76
[2019-01-06 05:46] VITALS: BP 104/70
[2019-01-06 07:26] LABS: BASOPHIL % 0.2 % (0-2); PLATELET COUNT 347 x10^3mcL (130-400)
[2019-01-06 07:39] LABS: RED CELL DISTRIBUTION WIDTH 19.5 % (11.5-14.5)
[2019-01-06 07:40] LABS: CALCIUM 8.2 mg/dL (8.5-10.1); CARBON DIOXIDE 26.2 mmol/L (21-32); MAGNESIUM 2.4 mg/dL (1.8-2.4); PHOSPHOROUS 6.8 mg/dL (2.5-4.9); POTASSIUM SERUM 5.5 mmol/L (3.5-5.1)
[2019-01-06 07:51] LABS: CREATININE SERUM 4.6 mg/dL (0.6-1.0)
[2019-01-06 09:40] VITALS: BP 108/69
[2019-01-06 12:00] VITALS: BP 147/86
[2019-01-06 17:18] VITALS: BP 134/84
[2019-01-06 20:56] VITALS: BP 150/90
[2019-01-06 22:25] VITALS: BP 139/88
[2019-01-07 04:55] VITALS: BP 122/77
[2019-01-07 06:28] LABS: CALCIUM 7.9 mg/dL (8.5-10.1); CARBON DIOXIDE 25.8 mmol/L (21-32); MAGNESIUM 2.1 mg/dL (1.8-2.4); PHOSPHOROUS 6.2 mg/dL (2.5-4.9); POTASSIUM SERUM 4.8 mmol/L (3.5-5.1)
[2019-01-07 06:51] LABS: CREATININE SERUM 4.1 mg/dL (0.6-1.0)
[2019-01-07 07:35] LABS: BASOPHIL % 0.2 % (0-2); PLATELET COUNT 340 x10^3mcL (130-400); RED CELL DISTRIBUTION WIDTH 18.9 % (11.5-14.5)
[2019-01-07 08:55] VITALS: BP 127/84
[2019-01-07 13:38] VITALS: BP 137/89
[2019-01-07 17:53] VITALS: BP 135/87
[2019-01-07 20:55] VITALS: BP 128/83
[2019-01-08 05:49] VITALS: BP 111/66
[2019-01-08 07:08] VITALS: BP 124/76
[2019-01-08 07:18] LABS: CALCIUM 8.3 mg/dL (8.5-10.1); CARBON DIOXIDE 23.7 mmol/L (21-32); MAGNESIUM 2.1 mg/dL (1.8-2.4); PHOSPHOROUS 6.8 mg/dL (2.5-4.9); POTASSIUM SERUM 5.4 mmol/L (3.5-5.1)
[2019-01-08 07:20] LABS: BASOPHIL % 0.4 % (0-2); PLATELET COUNT 288 x10^3mcL (130-400); RED CELL DISTRIBUTION WIDTH 18.8 % (11.5-14.5)
[2019-01-08 07:33] LABS: CREATININE SERUM 5.2 mg/dL (0.6-1.0)
[2019-01-08] MEDS ORDERED: LEVAQUIN750 MG PO (08:44)
[2019-01-08 12:58] VITALS: BP 142/83
[2019-01-08 13:25] VITALS: BP 142/83
[2019-01-08 15:50] VITALS: BP 136/84
== END 2019-01-08 16:54 | disposition home or self-care (01) | DRG 720 ==
LOC: ED 19:41 → DU 21:59
PROVIDERS: Emergency Medicine; Internal Medicine; ADMIT General Practice
PROC: 5A1D70Z Performance of Urinary Filtration, Intermittent, Less than 6 Hours Per Day (ICD-10-PCS; principal; 2019-01-03)
PROC: 5A1D70Z Performance of Urinary Filtration, Intermittent, Less than 6 Hours Per Day (ICD-10-PCS; 2019-01-04)
PROC: 5A1D70Z Performance of Urinary Filtration, Intermittent, Less than 6 Hours Per Day (ICD-10-PCS; 2019-01-06)
PROC: 5A1D70Z Performance of Urinary Filtration, Intermittent, Less than 6 Hours Per Day (ICD-10-PCS; 2019-01-08)
DX: A41.9 Sepsis, unspecified organism (principal); I13.2 Hypertensive heart and chronic kidney disease with heart failure and with stage 5 chronic kidney disease, or end stage renal disease; G93.41 Metabolic encephalopathy; E43 Unspecified severe protein-calorie malnutrition; E11.22 Type 2 diabetes mellitus with diabetic chronic kidney disease; E11.51 Type 2 diabetes mellitus with diabetic peripheral angiopathy without gangrene; E11.65 Type 2 diabetes mellitus with hyperglycemia; N18.6 End stage renal disease; L03.115 Cellulitis of right lower limb; I50.43 Acute on chronic combined systolic (congestive) and diastolic (congestive) heart failure; E87.5 Hyperkalemia; I16.1 Hypertensive emergency; D63.1 Anemia in chronic kidney disease; E83.39 Other disorders of phosphorus metabolism; E87.1 Hypo-osmolality and hyponatremia; E78.00 Pure hypercholesterolemia, unspecified; E78.5 Hyperlipidemia, unspecified; D47.3 Essential (hemorrhagic) thrombocythemia; M86.671 Other chronic osteomyelitis, right ankle and foot; E11.69 Type 2 diabetes mellitus with other specified complication; G25.81 Restless legs syndrome; R65.20 Severe sepsis without septic shock; I25.10 Atherosclerotic heart disease of native coronary artery without angina pectoris; Z99.2 Dependence on renal dialysis; Z89.421 Acquired absence of other right toe(s); Z68.23 Body mass index [BMI] 23.0-23.9, adult; Z89.512 Acquired absence of left leg below knee; Z87.891 Personal history of nicotine dependence; Z79.84 Long term (current) use of oral hypoglycemic drugs; Z88.2 Allergy status to sulfonamides; Z88.1 Allergy status to other antibiotic agents; Z90.49 Acquired absence of other specified parts of digestive tract; Z95.1 Presence of aortocoronary bypass graft; Z82.49 Family history of ischemic heart disease and other diseases of the circulatory system; Z83.3 Family history of diabetes mellitus
CPT/HCPCS: 82962; 83880; J0360; J0885-EC; J1644; J2270; J2405; J2543; J3370; J3475; J7030; J7050; Q0092

== ENCOUNTER 2019-02-10 23:27 | Inpatient (IN) | payer OTHER ==
[~2019-02-10] VITALS: Ht 167.6 cm; Wt 61.7 kg
[~2019-02-10 23:27] MED LIST changes: +COREG6.25 M1; +LEVAQUIN750 MG PO; +NATURAL IRON65 MG
[2019-02-10 23:32] VITALS: Ht 167.6 cm; Wt 61.7 kg
[2019-02-11 00:40] LABS: BASOPHIL % 0.1 % (0-2); PLATELET COUNT 214 x10^3mcL (130-400)
[2019-02-11 00:45] LABS: RED CELL DISTRIBUTION WIDTH 19.5 % (11.5-14.5)
[2019-02-11 00:53] LABS: BILIRUBIN TOTAL 0.5 mg/dL (0.20-1.00); C REACTIVE PROTEIN 4.1 mg/dL (<=0.9); CALCIUM 8.5 mg/dL (8.5-10.1); CARBON DIOXIDE 23.3 mmol/L (21-32); POTASSIUM SERUM 4.2 mmol/L (3.5-5.1); TOTAL PROTEIN, SERUM 7.9 g/dL (6.4-8.2)
[2019-02-11 00:54] LABS: ALBUMIN 2.6 g/dL (3.4-5.0)
[2019-02-11 00:55] LABS: CREATININE SERUM 4.6 mg/dL (0.6-1.0)
[2019-02-11 01:55] LABS: ERYTHROCYTE SED RATE 78 mm/hr (0-20)
[2019-02-11 02:37] LABS: MAGNESIUM 2.1 mg/dL (1.8-2.4); PHOSPHOROUS 7.2 mg/dL (2.5-4.9)
[2019-02-11] MEDS ORDERED: ZOF4 (02:41)
[2019-02-11] MEDS ORDERED: AMBIEN5 MG (02:41)
[2019-02-11 02:43] LABS: CHOLESTEROL/HDL RATIO 2.3
[2019-02-11 03:38] VITALS: BP 158/92
[2019-02-11 03:53] LABS: UA SPECIFIC GRAVITY 1.015 (1.005-1.035); microscopic required? YES; urine erythrocyte 2+ (NEGATIVE)
[2019-02-11 04:00] LABS: AMPHETAMINE QUAL UR POSITIVE (See below)
[2019-02-11 05:40] VITALS: BP 159/97
[2019-02-11 07:50] VITALS: BP 147/88
[2019-02-11 08:51] LABS: BASOPHIL % 0.5 % (0-2); PLATELET COUNT 192 x10^3mcL (130-400)
[2019-02-11 08:58] LABS: CALCIUM 8.4 mg/dL (8.5-10.1); CARBON DIOXIDE 24.3 mmol/L (21-32); MAGNESIUM 2.2 mg/dL (1.8-2.4); PHOSPHOROUS 7.7 mg/dL (2.5-4.9); POTASSIUM SERUM 4.2 mmol/L (3.5-5.1)
[2019-02-11 09:01] LABS: CREATININE SERUM 4.8 mg/dL (0.6-1.0)
[2019-02-11 09:07] LABS: RED CELL DISTRIBUTION WIDTH 19.8 % (11.5-14.5)
[2019-02-11 12:05] VITALS: BP 155/96
[2019-02-11 15:48] VITALS: BP 102/60
[2019-02-11 19:54] VITALS: BP 123/76
[2019-02-12 04:52] VITALS: BP 114/69
[2019-02-12 06:40] LABS: BASOPHIL % 0.5 % (0-2); PLATELET COUNT 215 x10^3mcL (130-400)
[2019-02-12 06:41] LABS: CALCIUM 8.3 mg/dL (8.5-10.1); CARBON DIOXIDE 22.7 mmol/L (21-32); CREATININE SERUM 3.9 mg/dL (0.6-1.0); MAGNESIUM 1.9 mg/dL (1.8-2.4); PHOSPHOROUS 6.7 mg/dL (2.5-4.9); POTASSIUM SERUM 4.3 mmol/L (3.5-5.1)
[2019-02-12 06:48] LABS: RED CELL DISTRIBUTION WIDTH 19.7 % (11.5-14.5)
[2019-02-12 10:30] VITALS: BP 110/62
[2019-02-12 13:58] VITALS: BP 91/54
[2019-02-12 17:49] VITALS: BP 105/66
[2019-02-12 21:21] VITALS: BP 119/71
[2019-02-13 05:51] VITALS: BP 108/68
[2019-02-13 06:00] VITALS: BP 96/56
[2019-02-13 06:23] LABS: BASOPHIL % 0.4 % (0-2); PLATELET COUNT 211 x10^3mcL (130-400)
[2019-02-13 06:30] VITALS: BP 106/68
[2019-02-13 06:32] LABS: RED CELL DISTRIBUTION WIDTH 19.5 % (11.5-14.5)
[2019-02-13 06:51] LABS: CALCIUM 7.7 mg/dL (8.5-10.1); CARBON DIOXIDE 19.4 mmol/L (21-32); POTASSIUM SERUM 4.7 mmol/L (3.5-5.1)
[2019-02-13 06:56] LABS: CREATININE SERUM 4.8 mg/dL (0.6-1.0)
[2019-02-13 09:34] VITALS: BP 109/67
[2019-02-13 17:21] VITALS: BP 154/84
[2019-02-13 21:58] VITALS: BP 136/71
[2019-02-14 05:09] VITALS: BP 112/64
[2019-02-14 06:33] LABS: CALCIUM 7.8 mg/dL (8.5-10.1); CARBON DIOXIDE 27.4 mmol/L (21-32); CREATININE SERUM 3.6 mg/dL (0.6-1.0); POTASSIUM SERUM 3.6 mmol/L (3.5-5.1)
[2019-02-14 06:45] LABS: BASOPHIL % 0.4 % (0-2); PLATELET COUNT 200 x10^3mcL (130-400)
[2019-02-14 07:02] LABS: RED CELL DISTRIBUTION WIDTH 19.6 % (11.5-14.5)
[2019-02-14 09:46] VITALS: BP 122/69
[2019-02-14 14:15] VITALS: BP 122/69
== END 2019-02-14 15:54 | disposition left against medical advice (07) | DRG 720 ==
LOC: ED 23:27 → DU 02-11 02:00 → MU 02-12 16:56
PROVIDERS: Emergency Medicine; ADMIT Internal Medicine
PROC: 5A1D70Z Performance of Urinary Filtration, Intermittent, Less than 6 Hours Per Day (ICD-10-PCS; 2019-02-11)
PROC: 0JBQ0ZZ Excision of Right Foot Subcutaneous Tissue and Fascia, Open Approach (ICD-10-PCS; principal; 2019-02-13)
PROC: 5A1D70Z Performance of Urinary Filtration, Intermittent, Less than 6 Hours Per Day (ICD-10-PCS; 2019-02-13)
DX: A41.9 Sepsis, unspecified organism (principal); N17.0 Acute kidney failure with tubular necrosis; E43 Unspecified severe protein-calorie malnutrition; I13.2 Hypertensive heart and chronic kidney disease with heart failure and with stage 5 chronic kidney disease, or end stage renal disease; E11.22 Type 2 diabetes mellitus with diabetic chronic kidney disease; E11.51 Type 2 diabetes mellitus with diabetic peripheral angiopathy without gangrene; E11.69 Type 2 diabetes mellitus with other specified complication; E11.621 Type 2 diabetes mellitus with foot ulcer; N18.6 End stage renal disease; I50.9 Heart failure, unspecified; Z89.512 Acquired absence of left leg below knee; Z89.421 Acquired absence of other right toe(s); Z90.49 Acquired absence of other specified parts of digestive tract; E78.00 Pure hypercholesterolemia, unspecified; I25.10 Atherosclerotic heart disease of native coronary artery without angina pectoris; Z99.2 Dependence on renal dialysis; Z95.1 Presence of aortocoronary bypass graft; Z88.2 Allergy status to sulfonamides; Z88.8 Allergy status to other drugs, medicaments and biological substances; L97.519 Non-pressure chronic ulcer of other part of right foot with unspecified severity; Z83.3 Family history of diabetes mellitus; Z82.49 Family history of ischemic heart disease and other diseases of the circulatory system; E11.65 Type 2 diabetes mellitus with hyperglycemia; E83.39 Other disorders of phosphorus metabolism; D63.1 Anemia in chronic kidney disease; Z68.20 Body mass index [BMI] 20.0-20.9, adult; Z91.19 Patient's noncompliance with other medical treatment and regimen; E11.40 Type 2 diabetes mellitus with diabetic neuropathy, unspecified; M86.671 Other chronic osteomyelitis, right ankle and foot; Z53.21 Procedure and treatment not carried out due to patient leaving prior to being seen by health care provider
CPT/HCPCS: 82962; 83880; J1644; J2270; J2405; J2543; J2997; J3370; J7030; J8597; Q0092